=== PATIENT | male | born 1940 | race Caucasian/White ===

== ENCOUNTER 2021-05-21 08:08 | Outpatient (CLI) | payer OTHER, MEDICARE ==
[2021-05-21 15:06] LABS: ALBUMIN 4.4 g/dL (3.2-5.5); ALBUMIN/GLOBULIN RATIO 1.6 (1.0-2.2); ALKALINE PHOSPHATASE 59 IU/L (42-121); ALT ALANINE AMINOTRANSFERASE 28 IU/L (10-60); AST ASPARTATE AMINOTRANSFERASE 32 IU/L (10-42); BILIRUBIN,TOTAL 1.2 mg/dL (0.2-1.0); BUN - BLOOD UREA NITROGEN 15 mg/dL (6-20); CALCIUM 9.4 mg/dL (8.5-10.3); CARBON DIOXIDE - CO2 28 mmol/L (21-32); CHLORIDE 101 mmol/L (101-111); CHOL/HDL RATIO 6.1 (<5.0); CHOLESTEROL 214 mg/dL; CREATININE 0.7 mg/dL (0.6-1.2); GFR - MDRD 109 (>89); GLUCOSE 122 mg/dL (70-100); HDL CHOLESTEROL 35 mg/dL; LDL CHOLESTEROL,CALCULATED 122 mg/dL; LDL/HDL RATIO 3.5 (<3.6); POTASSIUM 4.2 mmol/L (3.5-5.0); SODIUM 138 mmol/L (135-145); TOTAL PROTEIN 7.2 g/dL (6.7-8.2); TRIGLYCERIDES 283 mg/dL; VLDL CHOLESTEROL 57 mg/dL
== END 2021-05-21 08:09 | disposition home or self-care (01) ==
LOC: LAB.S 08:08
PROVIDERS: ATTEND Family Medicine
DX: E78.2 Mixed hyperlipidemia (principal)
CPT/HCPCS: 36415; 80053; 80061; 83721

== ENCOUNTER 2022-09-15 20:35 | Outpatient (CLI) | payer MEDICARE, OTHER | END 2022-09-15 20:36 | disposition critical access hospital (66) | LOC: EMS 20:35 | DX: R42 Dizziness and giddiness (principal); R11.0 Nausea | CPT/HCPCS: A0425; A0429 ==

== ENCOUNTER 2023-11-12 08:49 | Outpatient (CLI) | payer MEDICARE ==
[~2023-11-12 08:49] MED LIST: GADOTERATE MEGLUMINE 10 MMOL/20 ML VIAL ONE
[2023-11-12 09:33] LABS: CREATININE 0.7 mg/dL (0.6-1.3)
[2023-11-12] MEDS ORDERED: GADOTERATE MEGLUMINE 10 MMOL/20 ML VIAL IVP ONE (11:31)
--- NOTE | 2023-11-12 13:06 | MRI Report ---
PROCEDURE: ANGIO NECK W/WO INDICATIONS: CAROTID ARTERY STENOSIS CONTRAST: CLARISCAN 16.4 TECHNIQUE: Axial and sagittal balanced GE through the neck. Coronal dynamic MRA after the administration of con trast in the arterial and venous phases, with rotating 3-dimensional maximum intensity projection (WA P) reformats constructed from subtraction images. COMPARISON: None. FINDINGS: Image quality: Diagnostic, with note made of motion artifact. Carotid system: Great vessels demonstrate a conventional anatomy as they arise from the aortic arch. The origins of the common carotid arteries appear normal. The calibers and courses of the common c arotid arteries are likewise normal. The carotid bifurcations demonstrate atherosclerotic irregulari ty. There is 20-30% narrowing seen on the right and no new hemodynamically significant stenosis on th e left. The more distal internal carotid arteries demonstrate normal course and caliber. Posterior circulation: The origins of the vertebral arteries are unremarkable. The more superior po rtions of the vertebral arteries demonstrate normal course and caliber. Vertebral arteries join to f orm a normal appearing basilar artery. Miscellaneous: Subclavian arteries are patent throughout. Pre-contrast images through the neck demo nstrate no soft tissue abnormalities. IMPRESSION: No hemodynamically significant stenosis can be seen within the arteries of the neck. Reviewed by: Aj Vidal MD on 11/12/2023 12:05 PM [facility] Approved by: Aj Vidal MD on 11/12/2023 12:05 PM [facility] Station ID: [id number]
== END 2023-11-12 08:50 | disposition home or self-care (01) ==
LOC: LAB 08:49
DX: I65.23 Occlusion and stenosis of bilateral carotid arteries (principal)
CPT/HCPCS: 36415; 70549; 82565; A9575

== ENCOUNTER 2023-11-16 09:48 | Outpatient (CLI) | payer MEDICARE ==
--- NOTE | 2023-11-16 18:26 | MRI Report ---
PROCEDURE: ANGIO HEAD WO INDICATIONS: CAROTID ARTERY STENOSIS TECHNIQUE: Noncontrast axial 3-D [id number] MR angiogram, with 3-dimensional maximum intensity projection (M IP) reformats of the internal carotid arteries and posterior circulation then performed. COMPARISON: None. FINDINGS: Image quality: Excellent. Anterior circulation: There is atherosclerotic involvement of the cavernous carotids, with a probable at least moderate right cavernous carotid stenosis. The flow within the paired anterior cerebral art eries is normal and symmetric. The flow within the middle cerebral arteries is normal and symmetric. The anterior communicating artery is seen. No stenoses, occlusions, or aneurysms. Posterior circulation: Visualized portions of the vertebral arteries demonstrate normal caliber, and join to form a normal appearing basilar artery. The flow within the posterior cerebral arteries is normal and symmetric. No stenoses, occlusions, or aneurysms. IMPRESSION: 1. 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 2. No aneurysms. No vascular occlusions. Reviewed by: Bear Don MD on 11/16/2023 6:25 PM PST Approved by: Bear Don MD on 11/16/2023 6:25 PM PST Station ID: [id number]
== END 2023-11-16 09:49 | disposition home or self-care (01) ==
LOC: DI 09:48
DX: I65.23 Occlusion and stenosis of bilateral carotid arteries (principal)

== ENCOUNTER 2023-12-15 08:34 | Day surgery (SDC) | payer MEDICARE, OTHER ==
[2023-12-15] MEDS ORDERED: LACTATED RINGERS 1,000 ML IV ONE ×2 (09:11→10:11)
[2023-12-15] MEDS ORDERED: PROPOFOL 500 MG/50 ML 500 MG/50 ML VIAL ONE (09:19)
[2023-12-15] MEDS ORDERED: MIDAZOLAM 2 MG/2 ML VIAL ONE (09:20)
--- NOTE | 2023-12-15 09:21 | ANESTHESIA ---
Pre-Anesthesia VS, & Labs - Diagnosis hx polyps - Procedure colonoscopy Vital Signs: Temp Pulse Resp BP Pulse Ox O2 Flow Rate 36.7 C 52 L 18 151/76 H 98 12/15/23 08:59 12/15/23 08:59 12/15/23 08:59 12/15/23 08:59 12/15/23 08:59 Height: 5 ft 10 in Weight (kg): 81.6 kg Body Mass Index: 25.8 BMI Classification: Overweight - NPO >8 hours Home Medications and Allergies Home Medications: Ambulatory Orders Aspirin [[place]] 81 mg PO DAILY 12/14/23 Cholecalciferol (Vitamin D3) [Vitamin D3] 2,000 unit PO DAILY 12/14/23 Clopidogrel Bisulfate [Plavix] 75 mg PO DAILY 12/14/23 Lisinopril [Zestril] 20 mg PO DAILY 12/14/23 Multivitamin 1 tab PO DAILY 12/14/23 Rosuvastatin Calcium [Crestor] 40 mg PO DAILY 12/14/23 Aspirin [Vazalore] 81 mg PO DAILY 12/14/23 Cholecalciferol (Vitamin D3) [Vitamin D3] 2,000 unit PO DAILY 12/14/23 Clopidogrel Bisulfate [Plavix] 75 mg PO DAILY 12/14/23 Lisinopril [Zestril] 20 mg PO DAILY 12/14/23 Multivitamin 1 tab PO DAILY 12/14/23 Rosuvastatin Calcium [Crestor] 40 mg PO DAILY 12/14/23 Allergies/Adverse Reactions: Allergies Allergy/AdvReac Type Severity Reaction Status Date / Time procaine [From Novocain] Allergy Hives Verified 09/16/22 15:06 Anes History & Medical History - Anesthetic History Anesthesia Complications: reports: No previous complications Family history of Anesthesia Complications: Denies Family history of Malignant Hyperthermia: Denies - Medical History Cardiovascular: reports: Hypertension, High cholesterol, Coronary artery disease Pulmonary: reports: None Gastrointestinal: reports: None, Colon polyps Urinary: reports: None Musculoskeletal: reports: None Endocrine/Autoimmune: reports: None Skin: reports: None - Surgical History General: reports: Colonoscopy Eyes Ears Nose Throat (EENT): reports: Cataracts Orthopedic: reports: Carpal Tunnel surgery, Spine surgery, Other Exam General: Alert, Oriented x3, Cooperative Dental: Dentures full Upper, Dentures full Lower Mouth Opening: Greater than 4 Fingerbreadths Neck Mobility: Normal Mallampati classification: II Respiratory: Lungs clear Cardiovascular: Regular rate (arleth) Neurological: Normal speech Mental/Cognitive Status: Alert/Oriented X3, Normal for patient Cognitive Status: Within normal limits Plan Anesthesia Type: Total IV Consent for Procedure(s) Verified and Reviewed: Yes Code Status: Attempt Resuscitation ASA classification: 3-Severe systemic disease Is this case an emergency?: No
[2023-12-15 10:36] VITALS: BP 113/65; O2SAT 97
--- NOTE | 2023-12-15 10:43 | ANESTHESIA POST OP EVALUATION ---
Anesthesia Post Eval - Post Anesthesia Eval Vitals: Last Vital Signs Temp 36.4 C L 12/15/23 10:25 Pulse 64 12/15/23 10:25 Resp 15 12/15/23 10:25 BP 113/65 12/15/23 10:25 Pulse Ox 97 12/15/23 10:25 O2 Flow Rate CV Function Including HR & BP: Stable Pain Control: Satisfactory Nausea & Vomiting: Negative Mental Status: Baseline Respiratory Status: Airway Patent Hydration Status: Satisfactory Anesthesia Complications: None
== END 2023-12-15 08:35 | disposition home or self-care (01) ==
LOC: SDS 08:34
PROVIDERS: ATTEND Surgery
PROC: 0DBP8ZX Excision of Rectum, Via Natural or Artificial Opening Endoscopic, Diagnostic (ICD-10-PCS; 2023-12-15)
PROC: 0DBH8ZX Excision of Cecum, Via Natural or Artificial Opening Endoscopic, Diagnostic (ICD-10-PCS; 2023-12-15)
PROC: 0DBK8ZX Excision of Ascending Colon, Via Natural or Artificial Opening Endoscopic, Diagnostic (ICD-10-PCS; principal; 2023-12-15 09:45)
DX: Z12.11 Encounter for screening for malignant neoplasm of colon (principal); D12.0 Benign neoplasm of cecum; D12.2 Benign neoplasm of ascending colon; K62.1 Rectal polyp; K64.9 Unspecified hemorrhoids
CPT/HCPCS: 45380; J7120

== ENCOUNTER 2024-01-04 11:27 | Outpatient (CLI) | payer MEDICARE, OTHER ==
--- NOTE | 2024-01-04 17:24 | XRAY Report ---
PROCEDURE: Finger(s) LT INDICATIONS: LEFT HAND ARTHRITIS TECHNIQUE: AP hand, 2 views of the fourth finger(s) acquired. COMPARISON: None. FINDINGS: Bones: No fractures or dislocations. Osteoarthritic changes are noted throughout fourth digit. No gr oss bony erosive changes. No suspicious bony lesions. Soft tissues: No suspicious soft tissue calcifications or masses. IMPRESSION: No acute bony abnormality. 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 No gross bony erosive changes. Reviewed by: Darryl Montgomery MD on 01/04/2024 5:23 PM PST Approved by: Darryl Montgomery MD on 01/04/2024 5:23 PM PST Station ID: [id number]
== END 2024-01-04 11:28 | disposition home or self-care (01) ==
LOC: DI.S 11:27
PROVIDERS: ATTEND Nurse Practitioner Family
DX: M19.042 Primary osteoarthritis, left hand (principal)